=== PATIENT | male | born 1980 | race Caucasian/White ===

== ENCOUNTER 2020-01-28 21:34 | Emergency (ER) | payer OTHER ==
[~2020-01-28] VITALS: Ht 165.1 cm; Wt 81.6 kg
--- NOTE | 2020-01-28 21:34 | NUR ---
PT [facility]. TAKEN TO BED 2
[2020-01-28 21:35] VITALS: BP 140/83
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
--- NOTE | 2020-01-28 21:45 | NUR ---
Dr. Linder examining patient.
[2020-01-28 22:15] VITALS: BP 140/83
--- NOTE | 2020-01-28 22:15 | NUR ---
Patient discharged with v/s stable. Written and verbal after care instructions given and explained. Patient verbalized understanding. Ambulatory with steady gait. All questions addressed prior to discharge. Advised to follow up with PMD. WEATHER APPROPRIATE CLOTHING AND SANDWHICH PROVIDED.
== END 2020-01-28 22:15 | disposition home or self-care (01) ==
LOC: MED 21:34
DX: R07.89 Other chest pain (principal); M25.572 Pain in left ankle and joints of left foot; Z88.5 Allergy status to narcotic agent; Z59.0 Homelessness
CPT/HCPCS: 93005; 99283